=== PATIENT | male | born 2000 | race Two or more races ===

== ENCOUNTER 2019-11-27 23:37 | Emergency (ER) | payer SELFPAY ==
[~2019-11-27] VITALS: Ht 165.1 cm; Wt 67.6 kg
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
[2019-11-28] MEDS ORDERED: ACETAMINOPHEN ES 500 MG TABLET ONE (00:03)
--- NOTE | 2019-11-28 00:19 | NUR ---
XRAY AT BEDSIDE
[2019-11-28] MEDS ORDERED: ACETAMINOPHEN 325 MG TABLET PO ONE (00:30)
[2019-11-28] MEDS ORDERED: IBUPROFEN 600 MG TABLET PO ONE ×2 (01:16→01:30)
--- NOTE | 2019-11-28 01:32 | NUR ---
Rozina kulkarni in [facility] - 11/28/19 at 0144 by DYLAN EDSON BENITEZ AT THE BED SIDE FOR SUTURING.
--- NOTE | 2019-11-28 01:43 | NUR ---
EMT AT BEDSIDE FOR WOUND CARE
--- NOTE | 2019-11-28 02:20 | NUR ---
Patient discharged to home in stable condition. Written and verbal after care instructions given. Patient verbalizes understanding of instruction and RX. Pt ambulated with steady gait. vss.
[2019-11-28 02:21] VITALS: BP 118/72
== END 2019-11-28 02:26 | disposition home or self-care (01) ==
LOC: ER 23:41
DX: S52.124A Nondisplaced fracture of head of right radius, initial encounter for closed fracture (principal); S60.415A Abrasion of left ring finger, initial encounter; V09.9XXA Pedestrian injured in unspecified transport accident, initial encounter; Y93.51 Activity, roller skating (inline) and skateboarding; Y92.89 Other specified places as the place of occurrence of the external cause; Y99.8 Other external cause status
CPT/HCPCS: 73080-TC; 73090-TC

== ENCOUNTER 2021-05-15 22:23 | Emergency (ER) | payer MEDICAID ==
[~2021-05-15] VITALS: Ht 167.6 cm; Wt 67.1 kg
[2021-05-15 23:22] VITALS: BP 132/76
[2021-05-15] MEDS ORDERED: LIDOCAINE 1% INJ 50 ML MDV IJ ONE (23:32)
== END 2021-05-16 01:21 | disposition home or self-care (01) ==
LOC: ER 22:47
DX: S61.216A Laceration without foreign body of right little finger without damage to nail, initial encounter (principal); J45.909 Unspecified asthma, uncomplicated; Z88.6 Allergy status to analgesic agent; W26.8XXA Contact with other sharp object(s), not elsewhere classified, initial encounter; Y93.89 Activity, other specified; Y92.89 Other specified places as the place of occurrence of the external cause; Y99.8 Other external cause status
CPT/HCPCS: 12002; 99282; A6403; J3490